=== PATIENT | female | born 1950 | race Two or more races ===

== ENCOUNTER 2025-04-14 07:59 | Outpatient (RCR) | payer MEDICAID, SELFPAY | END 2025-04-30 23:59 | disposition home or self-care (01) | LOC: SCTC 07:59 | PROVIDERS: PCP Internal Medicine; Referring Provider Internal Medicine; Visit Provider Nurse Practitioner Family | DX: D70.9 Neutropenia, unspecified (principal); E03.9 Hypothyroidism, unspecified; M19.90 Unspecified osteoarthritis, unspecified site | CPT/HCPCS: 99213; G0463 ==

== ENCOUNTER 2025-05-26 10:15 | Outpatient (RCR) | payer MEDICAID, SELFPAY | END 2025-05-30 23:59 | disposition home or self-care (01) | LOC: SCTC 10:15 | PROVIDERS: PCP Physician Assistant; Referring Provider Internal Medicine; Visit Provider Nurse Practitioner Family | DX: D70.9 Neutropenia, unspecified (principal); E03.9 Hypothyroidism, unspecified; M19.90 Unspecified osteoarthritis, unspecified site | CPT/HCPCS: 99212; G0463 ==

== ENCOUNTER 2025-06-08 07:57 | Outpatient (CLI) | payer MEDICAID, SELFPAY ==
[2025-06-08] VITALS (9 sets, daily range): BP systolic 114–177; BP diastolic 65–86; PULSE 61–84; RESP 16–22; TEMP 36.4–36.7; O2SAT 95–100
--- NOTE | 2025-06-08 08:30 | XR_ITS ---
Examination: CT-guided percutaneous bone marrow aspiration right posterior superior iliac crest CT-guided percutaneous bone biopsy deep right posterior superior iliac crest CT pelvis without intravenous contrast Date and time of procedure: June 08, 2025 0930 hours INDICATIONS: Diagnosis congenital a granuloma site osteoporosis Informed consent provided. A timeout was completed verifying correct patient, procedure, site and positioning. Technique: Axial 3 mm sections were obtained for localization of the right posterior superior iliac crest Appropriate area is marked. The patient's site was prepped and draped in sterile fashion Maximal sterile barrier technique utilized, including hand hygiene Local anesthesia was obtained with 1% lidocaine. Low dose protocols were performed. One or more of the following dose reduction techniques were used; automated exposure control, adjustment of the mA and/or KV according to patient size, use of iterative reconstruction technique. Utilizing CT fluoroscopic guidance 14-gauge bone biopsy needle placed in the right posterior superior iliac crest. 5 cc marrow aspirate obtained. 3 cm bone core obtained Patient appears in stable condition during this procedure. At completion of the procedure, the patient is in satisfactory condition. Estimated blood loss 8 cc Complete pathology report to follow. Impression: Successful CT-guided percutaneous bone marrow aspiration right posterior superior iliac crest Successful CT-guided percutaneous bone biopsy deep right posterior superior iliac crest
[2025-06-08 08:33] LABS: Basophils # (Auto) 0.0 Thou/mm3 (0.0-0.2); Basophils % (Auto) 1 % (0-2.5); Eosinophils # (Auto) 0.4 Thou/mm3 (0.0-0.5); Eosinophils % (Auto) 8 % (0-10); Hematocrit 41.7 % (36.0-46.0); Hemoglobin 14.2 g/dL (12.0-16.0); Immature Granulocytes Auto 0.00 Thou/mm3 (0.00-0.00); Lymphocytes # (Auto) 1.6 Thou/mm3 (1.0-4.8); Lymphocytes % (Auto) 39 % (10-50); Mean Corpuscular HGB Conc 34.1 g/dl (31.0-37.0); Mean Corpuscular Hemoglobin 33.1 pg (25.0-35.0); Mean Corpuscular Volume 97 fL (80-100); Monocytes # (Auto) 0.6 Thou/mm3 (0.0-0.8); Monocytes % (Auto) 15 % (0-12); Neutrophils # (Auto) 1.5 Thou/mm3 (1.8-7.7); Neutrophils % (Auto) 37 % (37-80); Nucleated Red Blood Cell # 0.00 Thou/mm3 (0.00-0.00); Nucleated Red Blood Cell % 0 /100 WBC (0); Platelet Count 221 Thou/mm3 (140-440); RDW Standard Deviation 44.9 fL (36.4-46.3); Red Blood Count 4.29 Miln/mm3 (4.00-5.20); White Blood Count 4.2 Thou/mm3 (3.6-11.0)
[2025-06-08 08:47] LABS: Blood Urea Nitrogen 13 mg/dL (9-23); Creatinine (Component) 0.7 mg/dL (0.6-1.3); eGFR > 60 See Note
[2025-06-08 09:03] LABS: Flow Cytometry* See Sep Rpt
[2025-06-08 09:38] LABS: INR 1.0 (0.9-1.3); Partial Thromboplastin Time 26.6 Seconds (22.0-36.0); Prothrombin Time 10.8 Seconds (9.0-12.2)
[2025-06-08] MEDS: fentaNYL CIT INJ 50 mCg/ML AMP 2ML 75 MCG IVP (09:54)
--- NOTE | 2025-06-08 11:45 | PC.NURSE ---
1020 patient is awake, alert, breathing unlabored, s/p bone marrow biopsy and aspiration, dressing to lower back dry with no bleeding, report received from Armando BARRERA, patient to recover for 1 hr. 1134 patient is awake, alert,brathing unalbored, dressing dry with no bleeding, patient able to drink water with no nausea or vomiting, able to ambulat to bathroom with RN assistance and void, meets discharge criteria, discharge instructions given by Armando [employer]ac[employer] copy control clerk to patient and family member, patient discharged home in wheelchair with all belongings.
== END 2025-06-08 11:34 | disposition home or self-care (01) ==
PROVIDERS: Radiology Diagnostic Radiology; Referring Provider Nurse Practitioner Family; Visit Provider Nurse Practitioner Family
DX: D70.8 Other neutropenia (principal); D70.0 Congenital agranulocytosis
CPT/HCPCS: 38221; 36415; 77012; 82565; 84520; 85025; 85610; 85730; J3010

== ENCOUNTER → 2025-06-28 | Outpatient (CLI) | payer MEDICAID, SELFPAY ==
--- NOTE | 2025-06-28 14:15 | XR_ITS ---
Examination: Screening digital mammography, bilateral Computer aided detection 3-D breast Tomosynthesis, bilateral Date and time of exam: June 28, 2025 1355 hours Compared to mammograms dating to May 31, 2021 Indication: Screening Technique: Nonmagnified MLO, CC views of the breasts to been obtained, reconstructed from 3-D Tomosynthesis images. R2 computer aided detection program utilized for evaluation of suspicious masses and/or abnormal calcifications. 3-D Tomosynthesis images obtained. Findings: Scattered areas of fibroglandular density. Benign calcifications. No interval suspicious masses Impression: BI-RADS category II: Benign Findings. Recommend 1 year follow-up mammogram.
== END | disposition home or self-care (01) ==
LOC: CDIM 13:35
PROVIDERS: PCP Physician Assistant; Referring Provider Physician Assistant; Visit Provider Physician Assistant
DX: Z12.31 Encounter for screening mammogram for malignant neoplasm of breast (principal); R92.323 Mammographic fibroglandular density, bilateral breasts; R92.1 Mammographic calcification found on diagnostic imaging of breast
CPT/HCPCS: 77063; 77067

== ENCOUNTER 2025-08-03 14:16 | Outpatient (RCR) | payer MEDICAID, SELFPAY | END 2025-08-30 23:59 | disposition home or self-care (01) | LOC: SCTC 14:16 | PROVIDERS: PCP Physician Assistant; Referring Provider Physician Assistant; Visit Provider Nurse Practitioner Family | DX: D70.9 Neutropenia, unspecified (principal); E03.9 Hypothyroidism, unspecified; F32.A Depression, unspecified; M06.9 Rheumatoid arthritis, unspecified | CPT/HCPCS: 99212; G0463 ==

== ENCOUNTER → 2025-09-14 | Outpatient (CLI) | payer MEDICAID, SELFPAY ==
--- NOTE | 2025-09-14 16:00 | XR_ITS ---
EXAMINATION: CT abdomen pelvis without intervenous contrast Date and time: September 14, 2025, 1618 hours INDICATIONS: Hematuria episodes beginning 1 week ago TECHNIQUE AND FINDINGS: Multiple axial CT images abdomen pelvis 3.0 mm slice thickness 2D sagittal coronal reconstructions 3D reconstructions FINDINGS: No focal liver or splenic lesions No gallstones No pancreatic or adrenal mass. Mild renal scar formation, no renal or ureteral calculi, no hydronephrosis 30 mm fat-containing umbilical hernia No bowel obstruction No pericecal inflammatory change No bladder mass or bladder calculi Absent uterus Severe osteopenia including chronic osteoporotic compressions L4, L3, L2, L1 IMPRESSION: Renal scar formation, no renal or ureteral calculi, no hydronephrosis 30 mm fat-containing umbilical hernia No bladder mass or bladder calculi
== END | disposition home or self-care (01) ==
LOC: CCTX 15:57
PROVIDERS: Referring Provider Physician Assistant; Visit Provider Physician Assistant
DX: N28.89 Other specified disorders of kidney and ureter (principal); K42.9 Umbilical hernia without obstruction or gangrene
CPT/HCPCS: 74176